=== PATIENT | male | born 1950 | race American Indian/Alaskan Native ===

== ENCOUNTER 2017-08-25 07:35 | Outpatient (CLI) | payer OTHER ==
[~2017-08-25 07:35] MED LIST: BENTYL 20 MG; CARAFATE1 G; NORFLEX100 MG PO; PREVACID30 MG; ZANTAC150 MG PO
== END 2017-08-25 15:00 | disposition home or self-care (01) ==
LOC: TOM 07:35
DX: K30 Functional dyspepsia (principal); K58.1 Irritable bowel syndrome with constipation; R10.9 Unspecified abdominal pain
CPT/HCPCS: 74177; Q9965

== ENCOUNTER 2018-10-19 12:29 | Emergency (ER) | payer OTHER ==
[~2018-10-19] VITALS: Ht 190.5 cm; Wt 110.2 kg
[2018-10-19] MEDS ORDERED: NORVASC5 MG (13:06)
== END 2018-10-19 14:06 | disposition home or self-care (01) ==
LOC: ER 12:29
DX: M54.2 Cervicalgia (principal); M62.838 Other muscle spasm

== ENCOUNTER 2020-05-21 17:00 | Emergency (ER) | payer OTHER ==
[~2020-05-21] VITALS: Ht 190.5 cm; Wt 111.1 kg
[~2020-05-21 17:00] MED LIST changes: +NORVASC5 MG
[2020-05-21] MEDS ORDERED: PRILOSEC OTC20 MG (17:26)
== END 2020-05-21 21:02 | disposition home or self-care (01) ==
LOC: ER 17:00
DX: M54.2 Cervicalgia (principal); M62.838 Other muscle spasm

== ENCOUNTER 2020-06-08 13:43 | Emergency (ER) | payer OTHER ==
[~2020-06-08] VITALS: Ht 190.5 cm; Wt 107.0 kg
[~2020-06-08 13:43] MED LIST changes: +PRILOSEC OTC20 MG
[2020-06-08] MEDS ORDERED: NORVASC10 MG (14:29)
[2020-06-08] MEDS ORDERED: DICLOFENAC SODI75 MG PO (17:24)
[2020-06-08] MEDS ORDERED: NORFLEX100MG PO (17:24)
== END 2020-06-08 17:59 | disposition home or self-care (01) ==
LOC: ER 13:43
DX: M54.2 Cervicalgia (principal); M62.838 Other muscle spasm; S13.8XXS Sprain of joints and ligaments of other parts of neck, sequela; W18.39XS Other fall on same level, sequela

== ENCOUNTER 2020-10-03 10:11 | Emergency (ER) | payer OTHER ==
[~2020-10-03] VITALS: Ht 190.5 cm; Wt 108.9 kg
[~2020-10-03 10:11] MED LIST changes: +DICLOFENAC SODI75 MG PO; +NORFLEX100MG PO; +NORVASC10 MG
[2020-10-03] MEDS ORDERED: SKELAXIN800 MG PO (14:44)
[2020-10-03] MEDS ORDERED: DICLOFENAC POTA50 MG PO (14:44)
[2020-10-03] MEDS ORDERED: NEURONTIN600 M1 PO (14:44)
== END 2020-10-03 15:35 | disposition home or self-care (01) ==
LOC: ER 10:11
DX: M62.838 Other muscle spasm (principal); M54.2 Cervicalgia

== ENCOUNTER 2020-10-05 08:08 | Outpatient (CLI) | payer OTHER ==
[~2020-10-05 08:08] MED LIST changes: +DICLOFENAC POTA50 MG PO; +NEURONTIN600 M1 PO; +SKELAXIN800 MG PO
== END 2020-10-05 08:20 | disposition home or self-care (01) ==
LOC: RAD 08:08
DX: M62.838 Other muscle spasm (principal); Z98.1 Arthrodesis status

== ENCOUNTER 2020-10-13 09:23 | Outpatient (CLI) | payer OTHER | END 2020-10-13 09:39 | disposition home or self-care (01) | LOC: MRI 09:23 | PROVIDERS: ATTEND Orthopaedic Surgery Orthopaedic Surgery of the Spine | DX: M50.323 Other cervical disc degeneration at C6-C7 level (principal); Z98.1 Arthrodesis status | CPT/HCPCS: 72141 ==

== ENCOUNTER 2020-12-31 10:50 | Emergency (ER) | payer OTHER ==
[~2020-12-31] VITALS: Ht 190.5 cm; Wt 111.6 kg
== END 2020-12-31 12:49 | disposition home or self-care (01) ==
LOC: ER 10:50
DX: M54.2 Cervicalgia (principal)

== ENCOUNTER 2021-11-15 07:40 | Outpatient (CLI) | payer OTHER | END 2021-11-15 07:53 | disposition home or self-care (01) | LOC: RAD 07:40 | PROVIDERS: ATTEND Orthopaedic Surgery Orthopaedic Surgery of the Spine | DX: M50.00 Cervical disc disorder with myelopathy, unspecified cervical region (principal) | CPT/HCPCS: 72141 ==